=== PATIENT | male | born 1995 | race Caucasian/White ===

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

== ENCOUNTER → 2017-01-21 | Outpatient (REF) | payer OTHER ==
[2017-01-21 20:52] LABS: MICROSCOPIC INDICATED? MAN NO (NO)
== END ==
LOC: M LAB REF 19:36
PROVIDERS: ATTEND Physician Assistant
DX: R10.814 Left lower quadrant abdominal tenderness (principal)

== ENCOUNTER → 2017-01-21 | Outpatient (CLI) | payer OTHER ==
--- NOTE | 2017-01-21 18:37 | REP ---
REASON: Left lower quadrant pain. COMPARISON: Chest 04/26/2015 FINDINGS: Supine and upright views of the abdomen show the intestinal gas pattern to be nonspecific. Gas and stool is seen throughout the colon within the rectosigmoid region. The organ silhouettes insofar as delineated appear unremarkable. No abdominal calcific densities are seen within the abdomen or pelvis. The accompanying single frontal view of the chest shows no free subdiaphragmatic air, cardiomegaly, infiltrates or effusions. The frontal view of the chest is essentially unchanged from the prior exam. IMPRESSION: Nonspecific intestinal gas pattern. Signed by Buddy Ruiz DO 01/21/2017 06:39 P
[2017-01-21 20:17] LABS: ANION GAP 7 MEQ/L (8-16); BLOOD UREA NITROGEN 6 MG/DL (7-18); CALCIUM LEVEL 8.5 MG/DL (8.5-10.1); CARBON DIOXIDE LEVEL 30 MEQ/L (21-32); CHLORIDE LEVEL 106 MEQ/L (98-107); CREATININE FOR GFR 1.18 MG/DL (0.70-1.30); GLUCOSE, FASTING 66 MG/DL (70-105); POTASSIUM SERUM 3.6 MEQ/L (3.5-5.1); SODIUM LEVEL 143 MEQ/L (136-145)
[2017-01-21 20:56] LABS: BASO % 0.3 % (0.0-1.0); EOS # 0.1 10^3/uL (0.0-0.50); IMMATURE GRANULOCYTE % 0.3 % (0-0); LYMPH # 2.3 10^3/uL (1.5-6.5); LYMPH % 31.9 % (24.0-44.0); MEAN CORPUSCULAR HEMOGLOBIN 29.9 pg (27.0-33.0); MEAN CORPUSCULAR HGB CONC 34.9 g/dl (32.0-36.5); MEAN CORPUSCULAR VOLUME 85.5 fl (80.0-96.0); MONO # 0.6 10^3/uL (0.0-0.8); MONO % 7.9 % (0.0-5.0); NEUTROPHILS # 4.3 10^3/uL (1.8-7.7); NEUTROPHILS % 58.6 % (36.0-66.0); PLATELET COUNT, AUTOMATED 170 10^3/uL (150-450); RED CELL DISTRIBUTION WIDTH 11.9 % (11.5-14.5); WHITE BLOOD COUNT 7.3 10^3/uL (4.0-10.0)
== END ==
LOC: M WUC 17:03
PROVIDERS: ATTEND Physician Assistant
DX: R10.814 Left lower quadrant abdominal tenderness (principal)

== ENCOUNTER → 2017-01-22 | Outpatient (CLI) | payer OTHER ==
--- NOTE | 2017-01-22 11:41 | REP ---
CT ABDOMEN AND PELVIS WITHOUT CONTRAST: 01/22/2017 COMPARISON: X-ray 01/21/2017, CT with contrast 01/05/2013 CLINICAL HISTORY: Left lower quadrant abdominal tenderness. Possible kidney stone or other. CT ABDOMEN: Renal stone protocol utilized. The lung bases are clear. Heart not enlarged. There is no pericardial thickening or effusion. I see no hepatosplenomegaly, focal hepatic or splenic lesion, intrahepatic biliary dilatation or ascites. Gallbladder without calcified stone or mass. No hiatal hernia. Adrenal glands are normal. Pancreas intact. Small bowel loops intact. There has been appendectomy since the previous CT with clips at the cecal tip. The colon shows stool and gas to the splenic flexure. No colitis or other inflammatory changes about the colon. No distension. Small bowel loops unremarkable. Preliminary review of all CT slices abdomen and pelvis shows no perforation or free air. Bone window settings show lumbar and lower thoracic spine, posterior elements and visualized ribs all grossly intact. Kidneys show no evidence of renal stone, hydronephrosis, cyst or mass. No perinephric fluid. Ureters show normal course to the bladder and are without dilatation or stone on either side. No inflammatory changes adjacent to the ureters. The aorta is without aneurysm and no periaortic or retroperitoneal lymphadenopathy. CT PELVIS: Bone windows show hips, pelvis, sacrum and SI joints all intact. Distal ureters without dilatation or stone. Bladder without wall thickening mass or stone. The distal left colon, sigmoid and rectum without colitis, diverticulitis, stricture or mass. No adenopathy or pelvic free fluid. No ventral or inguinal hernia nor pathologic sized inguinal adenopathy. No other findings. IMPRESSION: 1. Negative CT abdomen pelvis. There is no renal, ureteral or bladder stone, hydronephrosis, hydroureter or other acute finding. 2. No evidence of colitis, diverticulitis, stricture or mass in the colon from cecum to rectosigmoid. 3. An interval appendectomy since the [address] CT. 4. Retroperitoneum without mass or adenopathy. No ascites or free air. Bones intact. Signed by Dyu To MD 01/22/2017 08:29 P
== END ==
LOC: M RAD 10:24
PROVIDERS: ATTEND Physician Assistant
DX: R10.814 Left lower quadrant abdominal tenderness (principal)

== ENCOUNTER 2017-02-08 11:09 | Emergency (ER) | payer OTHER ==
[~2017-02-08] VITALS: Ht 162.6 cm; Wt 77.3 kg
[2017-02-08 11:10] VITALS: BP 140/62
--- NOTE | 2017-02-08 17:09 | ECGEPIP ---
Stationary ECG Study [facility] - ED Test Date: 2017-02-08 Pat Name: VERO MUSA Department: Room: - Gender: M Residential Manager: sb : 1995 Requested By: JOSE M Reardon Order Number: [id number] Reading MD: Nara Guzmán Measurements Intervals [place] Rate: 85 P: 50 MO: 104 QRS: 70 QRSD: 97 T: 44 QT: 364 QTc: 433 Interpretive Statements SINUS RHYTHM WITH SHORT MO INTERVAL NO PRIOR FOR COMPARISON Electronically Signed On 02-08-2017 17:09:30 EST by Nara Guzmán
== END 2017-02-08 13:49 | disposition home or self-care (01) ==
LOC: M ED 11:09
DX: R07.89 Other chest pain (principal); R06.02 Shortness of breath; F41.9 Anxiety disorder, unspecified; Z88.0 Allergy status to penicillin

== ENCOUNTER 2018-03-16 19:00 | Emergency (ER) | payer OTHER, SELFPAY ==
[~2018-03-16] VITALS: Ht 162.6 cm; Wt 81.8 kg
[2018-03-16 19:29] LABS: BASO # 0.1 10^3/uL (0.0-0.2); BASO % 0.6 % (0.0-1.0); EOS % 0.4 % (0.0-3.0); HEMATOCRIT 50.5 % (42.0-52.0); HEMOGLOBIN 18.4 g/dl (13.5-17.5); LYMPH # 2.4 10^3/uL (1.5-6.5); LYMPH % 22.5 % (24.0-44.0); MEAN CORPUSCULAR HEMOGLOBIN 30.4 pg (27.0-33.0); MEAN CORPUSCULAR HGB CONC 36.4 g/dl (32.0-36.5); MEAN CORPUSCULAR VOLUME 83.3 fl (80.0-96.0); MONO # 0.8 10^3/uL (0.0-0.8); MONO % 7.8 % (0.0-5.0); NEUTROPHILS # 7.3 10^3/uL (1.8-7.7); NEUTROPHILS % 68.3 % (36.0-66.0); PLATELET COUNT, AUTOMATED 215 10^3/uL (150-450); RED BLOOD COUNT 6.06 10^6/uL (4.30-6.10); WHITE BLOOD COUNT 10.7 10^3/uL (4.0-10.0)
[2018-03-16] MEDS ORDERED: NS 1,000 ML IV ONE ×2 (19:30→20:30)
[2018-03-16] MEDS ORDERED: GI COCKTAIL 50ML BTL(HYOSCYAMINE/MAALOX/LIDOCAINE VISCOUS)(1:3:1) PO ONE (19:30)
[2018-03-16 19:49] LABS: ALBUMIN 5.4 GM/DL (3.2-5.2); ALT/SGPT 27 U/L (12-78); BILIRUBIN,DIRECT 0.3 MG/DL (0.0-0.2); BILIRUBIN,TOTAL 1.4 MG/DL (0.2-1.0); BLOOD UREA NITROGEN 10 MG/DL (7-18); CALCIUM LEVEL 10.3 MG/DL (8.5-10.1); CARBON DIOXIDE LEVEL 21 MEQ/L (21-32); CHLORIDE LEVEL 102 MEQ/L (98-107); CPK CREATINE PHOSPHOKINASE 260 U/L (39-308); CREATININE FOR GFR 1.24 MG/DL (0.70-1.30); GLOMERULAR FILTRATION RATE > 60.0 (>60); GLUCOSE, FASTING 91 MG/DL (70-100); LIPASE 70 U/L (73-393); MB/CK RELATIVE INDEX 0.69 (< OR =4); POTASSIUM SERUM 3.9 MEQ/L (3.5-5.1); SODIUM LEVEL 138 MEQ/L (136-145); TOTAL PROTEIN 8.5 GM/DL (6.4-8.2); TROPONIN I < 0.02 NG/ML (< 0.10)
--- NOTE | 2018-03-16 20:00 | REP ---
Clinical: Acute chest pain . Comparison: 01/21/2017 . Findings: The mediastinum and cardiac silhouette are stable and within normal limits for portable technique. The lung gray are clear without acute consolidation, effusion, or pneumothorax. Skeletal structures are intact. Impression: No acute cardiopulmonary process appreciated. Electronically Signed by Miguel Roy MD 03/16/2018 07:52 P
[2018-03-16] MEDS ORDERED: SUCRALFATE 1 GM TAB PO ONE (20:30)
[2018-03-16] MEDS ORDERED: KETOROLAC 30 MG/ML VIAL (J1885) IV ONE (20:30)
[2018-03-16] MEDS ORDERED: PANTOPRAZOLE 40MG TAB (PROTONIX) PO ONE (20:30)
[2018-03-16] MEDS ORDERED: CARA1TAB6 PO (22:09)
[2018-03-16 22:15] VITALS: BP 149/87
--- NOTE | 2018-03-18 20:43 | ECGEPIP ---
Stationary ECG Study [facility] - ED Test Date: 2018-03-16 Pat Name: VERO MUSA Department: Room: - Gender: M Director Of Admissions: [place] : 1995 Requested By: FRANCOISE Mckeon Order Number: [id number] Reading MD: Guanaco Talley Measurements Intervals [place] Rate: 115 P: 60 SC: 84 QRS: 75 QRSD: 92 T: 23 QT: 316 QTc: 439 Interpretive Statements SINUS TACHYCARDIA WITH SHORT SC INTERVAL MODERATE ST DEPRESSION RATE CHANGE COMPARED TO 02/08/17 Electronically Signed On 03-18-2018 20:43:46 EST by Guanaco Talley
== END 2018-03-16 22:38 | disposition home or self-care (01) ==
LOC: M ED 19:00 → EDBD 19:00 → M ED 22:38
DX: R00.0 Tachycardia, unspecified (principal); E86.0 Dehydration; F17.200 Nicotine dependence, unspecified, uncomplicated
CPT/HCPCS: 36415; 71045; 80048; 80076; 82550; 82553; 83690; 84443; 84484; 85025; 93005; 93041; 94760; 96361; 96374; 99285; J1885

== ENCOUNTER → 2023-08-29 | Outpatient (CLI) | payer SELFPAY ==
[~2023-08-29] MED LIST changes: +CARA1TAB6 PO
== END ==
LOC: M RAD 08:09
PROVIDERS: ATTEND Physician Assistant
DX: R10.12 Left upper quadrant pain (principal); R11.2 Nausea with vomiting, unspecified

== ENCOUNTER → 2023-11-01 | Outpatient (REF) | payer SELFPAY | LOC: M LAB REF 17:03 | PROVIDERS: ATTEND Physician Assistant | DX: L02.216 Cutaneous abscess of umbilicus (principal) ==